=== PATIENT | female | born 1955 | race Caucasian/White ===

== ENCOUNTER 2017-01-25 12:03 | Observation (INO) | payer MEDICARE ==
[~2017-01-25] VITALS: Ht 162.6 cm; Wt 84.8 kg
[~2017-01-25 12:03] MED LIST: ASPIRIN325 MG PO; BAYER CHEWABLE81 MG PO; CATAPRES0.1 MG PO; CELEXA20 MG PO; COUMADIN5 MG PO; COZAAR50 MG PO; GLUCOPHAGE500 MG; GLUCOPHAGE500 MG PO; LANTUS INSULIN10 ML SC; LIPITOR20 MG PO; PLAVIX75 MG PO; PROAIR HFA8.5 GM INH; PROVENTIL HFA6.7 GM INH; TYLENOL W/CODEI1 TAB PO; ZIAC 5-6.25 MG1 TAB PO
[2017-01-25 15:34] LABS: ALBUMIN 3.2 g/dL (3.4-5.0); ALKALINE PHOSPHATASE 80 U/L (46-116); ALT (SGPT) 24 U/L (10-68); BILIRUBIN - TOTAL 0.49 mg/dL (0.2-1.3); CALC OSMOLALITY 282 mosm/kg (275-300); CALCIUM 8.2 mg/dL (8.5-10.1); CHLORIDE - SERUM 99 mmol/L (98-107); CREATININE - SERUM 0.7 mg/dL (0.6-1.3); POTASSIUM - SERUM 3.9 mmol/L (3.5-5.1); PROTEIN - SERUM 6.9 g/dL (6.4-8.2); SODIUM 137 mmol/L (136-145); UREA NITROGEN 19 mg/dL (7-18); eGFR NON AFRICAN AMERICAN 90 mL/min (90-120)
[2017-01-25 15:35] LABS: GLUCOSE 224 mg/dL (74-106)
[2017-01-25 18:18] LABS: CKMB 2.1 U/L (0.0-3.6); CREATINE KINASE 206 UL (21-215); TROPONIN-I < 0.017 ng/mL (0.000-0.060)
--- NOTE | 2017-01-25 19:00 | NUR ---
RECEIVED PATIENT FROM ER VIA WHEELCHAIR TO ROOM 1219 ACCOMPANIED BY ER STAFF WITH ADMITTING Dx OF DEHYDRATION/DIARRHEA. PT STATES ALSO THAT SHE FELL AT HOME. INTRODUCED SELF. V/S TAKEN. ROUTINE ADISSION ASSESSMENT AND HISTORY DONE. ORIENTED TO ROOM AND BED CONTROLS. PLAN OF CARE INITIATED.
[2017-01-25 19:06] VITALS: BP 130/66; BMI 32.1
--- NOTE | 2017-01-25 20:52 | NUR ---
CALL LIGHT ANSWERED. ASSISTED TO THE BATHROOM. LOOSE BOWEL MOVEMENT NOTED. ASSISTED BACK TO BED AFTER.
--- NOTE | 2017-01-25 21:16 | NUR ---
FSBS 291mg/dl @ HS WITH SLIDING SCALE.
--- NOTE | 2017-01-25 21:50 | NUR ---
TELEMETRY STARTED--89/min SR.
--- NOTE | 2017-01-25 22:43 | NUR ---
REGULAR INSULIN 6 units SQ GIVEN PER SLIDING SCALE. SEE E-MAR.
--- NOTE | 2017-01-25 22:57 | NUR ---
PAIN LEVEL 8/10 FROM L SHOULDER WHEN PT FELL AT HOME. DAYLIN #3 2tabs PO GIVEN FOR PAIN MANAGEMENT. PROVIDED WITH DIET LEMON-CHILKAT.
--- NOTE | 2017-01-25 23:20 | NUR ---
INDUSTRIAL ROBOTICS MECHANIC HERE TO DRAW CARDIAC LABS.
--- NOTE | 2017-01-25 23:32 | NUR ---
CALL LIGHT ANSWERED. ASSISTED TO THE BATHROOM. VOIDED. V/S TAKEN WITH ORTHOSTATIC BP'S.
[2017-01-25 23:34] VITALS: BP 126/61
[2017-01-25 23:36] VITALS: BP 119/69
[2017-01-25 23:38] VITALS: BP 114/63
[2017-01-25 23:55] LABS: CKMB 1.7 U/L (0.0-3.6); CREATINE KINASE 201 UL (21-215)
[2017-01-25 23:56] LABS: TROPONIN-I < 0.017 ng/mL (0.000-0.060)
--- NOTE | 2017-01-26 01:20 | NUR ---
EYES CLOSED. LEFT UNDISTURBED.
--- NOTE | 2017-01-26 03:20 | NUR ---
APPEARS TO BE ASLEEP.
--- NOTE | 2017-01-26 04:55 | NUR ---
CUSTOMER ENGINEER HERE TO DRAW AM LAB. MARIO PEREZ.
--- NOTE | 2017-01-26 04:59 | NUR ---
ASSISTED TO THE BATHROOM AND BACK TO BED. VOIDED. NEW IV BAG HUNG.
--- NOTE | 2017-01-26 05:43 | NUR ---
SLEPT FAIRLY WELL DURING THE NIGHT. CONTINUING PLAN OF CARE.
[2017-01-26 05:50] LABS: CALC OSMOLALITY 288 mosm/kg (275-300); CALCIUM 7.9 mg/dL (8.5-10.1); CARBON DIOXIDE 27.3 mmol/L (21.0-32.0); CHLORIDE - SERUM 104 mmol/L (98-107); CKMB 1.6 U/L (0.0-3.6); CREATINE KINASE 169 UL (21-215); CREATININE - SERUM 0.7 mg/dL (0.6-1.3); GLUCOSE 197 mg/dL (74-106); POTASSIUM - SERUM 3.5 mmol/L (3.5-5.1); SODIUM 141 mmol/L (136-145); TROPONIN-I < 0.017 ng/mL (0.000-0.060); UREA NITROGEN 21 mg/dL (7-18); eGFR NON AFRICAN AMERICAN 90 mL/min (90-120)
[2017-01-26 05:51] LABS: BASOPHILS 0.6 % (0.0-2.0); HEMATOCRIT 39.1 % (36.0-48.0); HEMOGLOBIN 12.8 g/dL (12-16); IMMATURE GRANULOCYTES 0.6 % (0-5); LYMPHOCYTES 53.4 % (15-50); MCH 29.8 pg (26.0-34.0); MCHC 32.7 g/dL (31.0-37.0); MCV 90.9 fL (80.0-100.0); MEAN PLATELET VOLUME 11.5 fL (7.4-10.4); MONOCYTES 15.1 % (2-11); NEUTROPHILS 29.3 % (40-80); RDW 13.4 % (11.5-14.5); WBC 4.9 10x3/uL (4.8-10.8)
[2017-01-26 05:54] LABS: PLATELET COUNT 179 10x3/uL (130-400)
--- NOTE | 2017-01-26 06:29 | NUR ---
FSBS 167mg/dl WITH SLIDING SCALE. SLEPT FAIRLY WELL DURING THE NIGHT. CONTINUING PLAN OF CARE.
--- NOTE | 2017-01-26 07:45 | NUR ---
PATIENT SITTING UP ON THE BEDSIDE EATING HER BREAKFAST. NO NEEDS NOTED. CALL LIGHT IS WITHIN REACH.
--- NOTE | 2017-01-26 08:33 | NUR ---
ASSISTED PT UP TO BATHROOM. STATES THAT SHE HAS SOME DIZZINESS AT TIMES AND HAS FALLEN AT HOME. PT VOIDED. PT BACK TO BED.
--- NOTE | 2017-01-26 09:05 | NUR ---
PATIENT GIVEN HER MORNING MEDICATIONS IN ADDITION TO 2 TYLENOL #3 TABS FOR C/O LEFT SHOULDER PAIN. SHE DESCRIBES THE PAIN SHARP IN THE TRAPEZIUS MUSCLE REGION. SHE DID FALL ON IT AND HAS HX OF SHOULDER DISLOCATION X1 FROM A FALL LAST YEAR. SHE DOES NORMALLY USE A CANE FOR STABILITY. SHE LIVES ALONE. HER DAUGHTER IS COMING TO STAY WITH HER FOR A FEW DAYS AND WILL BE HERE LATER TODAY. IVF INFUSING PER ORDERS TO THE RIGHT HAND. INSERTION SITE IS WITHOUT REDNESS OR SWELLING FROM INFILTRATION.
[2017-01-26 09:20] VITALS: BP 128/63
--- NOTE | 2017-01-26 09:56 | NUR ---
PATIENT UP WALKING IN THE HALLWAY WITH PT. SHE IS STRONG ON HER LEGS BUT EXPERIENCES VERTIGO THAT MAKES HER UNSTEADY AT TIMES. WAS ADVISED THAT SHE DOESN'T NEED TO BE WALKING INDEPENDENTLY AT THIS TIME. SHE STATES THAT HER PAIN IS GETTING BETTER AND RATES IT A 4-5. FRESH ICE WATER AT THE BEDSIDE. DENIES OTHER NEEDS AT THIS TIME.
--- NOTE | 2017-01-26 11:07 | NUR ---
MISTY RESTING QUIETLY WITH EYES CLOSED, HOB UO 45 DEGREES, LIGHTS ON, GLASSES ON, NEWSPAPER IN HER LAP. RESPIRATIONS ARE DEEP AND EVEN. CALL LIGHT IS WITHIN HER REACH, DOOR OPEN. MONITORING.
--- NOTE | 2017-01-26 11:52 | HP ---
PATIENT: GERMAN WARREN MEDICAL RECORD: [id number] ACCOUNT: [id number] LOCATION[facility] : 51 ADMISSION DATE: 01/25/17 HISTORY AND PHYSICAL EXAMINATION HISTORY OF PRESENT ILLNESS: Ms. Warren is a 61-year-old white female patient who was previously followed by Dr. Mason, who presents with dizziness, headaches, falls and decreased urine output. She was found to be hypotensive here in the Emergency Room. She has been babysitting her grandchildren who had flu. She denies really any syncope, nausea, vomiting, fever or chills. She has been coughing up some green phlegm for at least a month. She is rather vague with her details, but she is placed in observation at this time for IV fluids and monitoring her blood pressure. PAST MEDICAL HISTORY: Significant for multiple CVAs, diabetes, hypertension, coronary artery disease with previous stenting, myocardial infarction, vertigo, atrial fib and a heart murmur, emphysema, asthma, sleep apnea with BiPAP. PAST SURGICAL HISTORY: Include foot and arm surgeries. ALLERGIES: IODINE AND LISINOPRIL. HOME MEDICATIONS: Include albuterol, clopidogrel 75 mg a day, atorvastatin 40 mg a day, losartan 50 mg a day, Lantus, Tylenol with codeine, clonidine 0.1 q.6 p.r.n., citalopram 10 mg a day, Ziac 1 mg a day, albuterol 1 puff q.4 p.r.n., aspirin a day and metformin 1000 b.i.d. FAMILY HISTORY: Significant for cardiovascular disease and diabetes. SOCIAL HISTORY: The patient does not smoke or drink. DIAGNOSTIC DATA: CT of her head reveals some old infarcts, no acute intracranial pathology. X-ray of the left shoulder reveals some degenerative changes in the left shoulder. Chest x-ray reveals no active disease. LABORATORY DATA: Sodium is 137, BUN 19, creatinine 0.9, glucose 244. PHYSICAL EXAMINATION: GENERAL: Alert and cooperative at this time. HEENT: Negative. NECK: Soft and supple. CARDIOVASCULAR: Heart regular. LUNGS: Clear. ABDOMEN: Soft. NEUROLOGIC: No gross neurologics. IMPRESSION: Recent falls, hypotension, vertigo, recent diarrhea, history of cerebrovascular accident, history of coronary artery disease, atrial fibrillation, obstructive sleep apnea. PLAN: Observation, monitor blood sugars, orthostatic, echo, telemetry, hold BP meds, IV fluids. See orders for rest of the plan. TRANSINT:[id number] Voice Confirmation ID: [id number] DOCUMENT ID: [id number] HISTORY AND PHYSICAL [id number] GERMAN WARREN MATTHEW DO at 1152 CC: [id number] DICTATION DATE: 01/25/17 183 VENDING MACHINE COIN COLLECTOR: 01/25/177 ADM IN [place] [id number] [place] [id number]
--- NOTE | 2017-01-26 11:56 | NUR ---
MEDICAL IMAGING IN DOING THE ECHO. MARIANO DELIVERED. WILL CHECK FSBS PRIOR TO HER EATING, AFTER ECHO.
--- NOTE | 2017-01-26 13:10 | NUR ---
patient sitting up on the bedside looking at her phone. she asked to borrow a phone sprinkler fitter. found one and loaned it to her.
[2017-01-26 13:22] VITALS: Ht 162.6 cm; Wt 84.8 kg
--- NOTE | 2017-01-26 13:23 | NUR ---
ASSISTED PATIENT BACK INTO BED, POSITIONED FOR COMFORT. IVF INFUSING AND FRESH ICE WATER PROVIDED. CALL LIGHT IS WITHIN REACH. MONITORING.
--- NOTE | 2017-01-26 14:16 | NUR ---
No. Question Answer Score * Is the patient Alert and Oriented? Yes 0 * How many steps to enter\exit or inside your home? 7 0 * PCP DOES NOT HAVE ONE. SHE THINKS DR. MONROE IS GOING TO ACCEPT HER NEW PATIENT. 0 * Pharmacy [facility] ON [address] 0 * Preadmission Environment Home with Family 0 * ADLs Independent 0 * Equipment None 0 * List name and contact numbers for known caregivers / representatives who currently or will assist patient after discharge: RAULYUEDEDRICK BASS [phone] * Community resources currently utilized None 0 * Additional services required to return to the preadmission environment? No 0 * Can the patient safely return to the preadmission environment? Yes 0 * Has this patient been hospitalized within the prior 30 days at any hospital? No PATIENT IS AWAKE AND ALERT. SHE STATES SHE LIVES ALONE AND IS INDEPENDENT IN HER ADL'S. PATIENT'S DAUGHTER, RICHARD, WILL BE AVAILABLE TO DRIVE HER HOME AT DISCHARGE. PATIENT STATES SHE DOES NOT HAVE A PCP AT PRESENT BUT SHE STATES THAT DR. MONROE HAS AGREED TO ACCEPT HER A PATIENT. SHE GETS HER MEDS FROM [facility] ON [address] PATIENT DENIES ANY EQUIPMENT AND HAS NEVER HAD HOME HEALTH. THERE ARE 7 STEPS TO ENTER HER HOME AND SHE STATES THEY ARE NOT USUALLY A PROBLEM. HER DAUGHTER IS AT THE BEDSIDE AND STATES SHE MAY BE TAKING PATIENT TO HER HOME IN [place] FOR A FEW DAYS TO RECUPERATE.
[2017-01-26 14:31] LABS: HEMOGLOBIN A1C 11.3 % (4.8-6.0)
--- NOTE | 2017-01-26 14:49 | NUR ---
PHYSICAL THERAPIST IS HERE TO WALK PT. PT TOLERATED WELL.
--- NOTE | 2017-01-26 14:50 | NUR ---
Visited with patient. Discussed discharge information. Pt happy with care. Denies needs at this time.
[2017-01-26] MEDS ORDERED: PROVENTIL HFA6.7 GM INH (15:35)
[2017-01-26] MEDS ORDERED: GLUCOPHAGE500 MG PO (15:35)
[2017-01-26] MEDS ORDERED: LIPITOR20 MG PO (15:35)
[2017-01-26] MEDS ORDERED: CELEXA20 MG PO (15:35)
[2017-01-26] MEDS ORDERED: PLAVIX75 MG PO (15:35)
[2017-01-26] MEDS ORDERED: LANTUS INSULIN10 ML SC (15:35)
--- NOTE | 2017-01-31 08:17 | EC ---
PATIENT:GERMAN WARREN DATE OF SERVICE: 01/25/17 SEX: F MEDICAL RECORD: [id number] DATE OF : [birth year] [facility] AGE [facility]: 61 ADMISSION DATE: 01/25/17 REFERRING PHYSICIAN: INTERPRETING PHYSICIAN: RUFINO STANLEY M.D. ECHOCARDIOGRAM REPORT ECHO CHARGES 4 ECHO COMPLETE CLINICAL DIAGNOSIS: SYNCOPE HX OF CAD/STENT ECHOCARDIOGRAPHIC MEASUREMENTS (adult normal given) AC root (d.<3.7cm) 3.2 LV Septum d (<1.2 cm> 1.4 Valve Excursion 1.7 LV Septum (systole) 1.5 Left Atria (s.<4.0cm> 3.0 LVPW d(<1.2cm) 1.6 RV (d.<2.3cm) 3.8 LVPW (sytole) 1.7 LV diastole(<5.6CM) 5.4 MV E-F(>70mm/sec) LV systole 4.5 LVOT Diameter 1.5 MV exc.(>10mm) 1.3 Est.ejection fraction (50-75%) Pericardial Effusion N DOPPLER: LVIT A 91.0 E 111 LA RVSP 20 LVOT 131 AOP1/2T Asc. Ao 153 RVOT 109 RA PA 133 AV Gradient Peak 9.41 AV Mean 5.52 AV Area 1.5 MV Gradient Peak 5.44 MV Mean 2.22 MV Area COMMENTS: Nutrition Program Instructor: Samantha BRITO Service Department Manager:2 Dr. Stanley TAPE# PACS DATE OF SERVICE: 01/26/2017 REFERRING PHYSICIAN: Sam Clemens DO INDICATION: Syncope. DESCRIPTION: Left ventricle demonstrates left ventricular hypertrophy. No wall motion abnormalities are noted. Estimated ejection fraction is 55%. Mitral valve is structurally normal. There is no regurgitation or prolapse seen. Left atrium is normal in size. The aortic valve is trileaflet. There is no stenosis ECHOCARDIOGRAM REPORT [id number] GERMAN WARREN or regurgitation present. The right ventricle is mildly dilated. Tricuspid valve is normal. There is mild regurgitation noted. Right atrium is normal size. There is no pericardial effusion seen. IMPRESSION: 1. Left ventricular hypertrophy with preserved ejection fraction of 55%. 2. Mild tricuspid regurgitation. TRANSINT:[id number] Voice Confirmation ID: [id number] DOCUMENT ID: [id number] RUFINO STANLEY M.D. at 0817 CC: [id number] DICTATION DATE: 01/27/17 0637 MAKE UP MAN: 01/28/17 0114 DIS IN 01/26/17 [facility] [address] [place] [id number]
== END 2017-01-26 14:30 | disposition home or self-care (01) ==
LOC: D.ER 12:03 → D.WS 17:20 → OBSVTIME 17:20 → D.WS 17:20
PROVIDERS: Physician Assistant; ADMIT Family Medicine
DX: I95.9 Hypotension, unspecified (principal); E86.0 Dehydration; R42 Dizziness and giddiness; R51 Headache; Z91.81 History of falling; Z86.73 Personal history of transient ischemic attack (TIA), and cerebral infarction without residual deficits; E11.65 Type 2 diabetes mellitus with hyperglycemia; I10 Essential (primary) hypertension; I25.10 Atherosclerotic heart disease of native coronary artery without angina pectoris; Z95.5 Presence of coronary angioplasty implant and graft; I48.91 Unspecified atrial fibrillation; I25.2 Old myocardial infarction; G47.30 Sleep apnea, unspecified; M25.512 Pain in left shoulder

== ENCOUNTER → 2017-05-24 16:43 | Outpatient (CLI) | payer MEDICARE ==
[2017-01-26 13:22] VITALS: BMI 32.1
== END | disposition home or self-care (01) ==
LOC: D.MAMMO 15:30
DX: Z12.31 Encounter for screening mammogram for malignant neoplasm of breast (principal)

== ENCOUNTER 2017-05-31 00:38 | Emergency (ER) | payer MEDICARE ==
[2017-01-26 13:22] VITALS: BMI 32.1
== END 2017-05-31 02:58 | disposition home or self-care (01) ==
LOC: D.ER 00:38
DX: E11.9 Type 2 diabetes mellitus without complications (principal); I10 Essential (primary) hypertension; Z79.4 Long term (current) use of insulin

== ENCOUNTER → 2017-06-26 18:36 | Outpatient (CLI) | payer MEDICARE ==
[2017-01-26 13:22] VITALS: BMI 32.1
== END | disposition home or self-care (01) ==
LOC: D.MAMMO 13:30
DX: R92.8 Other abnormal and inconclusive findings on diagnostic imaging of breast (principal)

== ENCOUNTER 2017-09-27 10:55 | Emergency (ER) | payer MEDICARE ==
[2017-01-26 13:22] VITALS: BMI 32.1
[2017-09-27 11:48] LABS: BASOPHILS 0.2 % (0-2); EOSINOPHILS 1.5 % (0-7); HEMATOCRIT 43.2 % (36.0-48.0); HEMOGLOBIN 14.6 g/dL (12-16); IMMATURE GRANULOCYTES 0.4 % (0-5); LYMPHOCYTES 29.8 % (15-50); MCHC 33.8 g/dL (31.0-37.0); MCV 88.9 fL (80.0-100.0); MEAN PLATELET VOLUME 11.4 fL (7.4-10.4); MONOCYTES 7.9 % (2-11); NEUTROPHILS 60.2 % (40-80); RBC 4.86 10x6/uL (4.00-5.40)
[2017-09-27 12:01] LABS: PLATELET COUNT 215 10x3/uL (130-400)
[2017-09-27 12:04] LABS: APTT 24.2 SECONDS (22.8-39.4); INR 0.95 (0.85-1.17); PROTIME 12.5 SECONDS (11.6-15.0)
[2017-09-27 12:07] LABS: ALBUMIN 3.3 g/dL (3.4-5.0); ALKALINE PHOSPHATASE 105 U/L (46-116); ALT (SGPT) 25 U/L (10-68); BILIRUBIN - TOTAL 0.35 mg/dL (0.2-1.3); CALC OSMOLALITY 281 mosm/kg (275-300); CALCIUM 9.2 mg/dL (8.5-10.1); CARBON DIOXIDE 24.6 mmol/L (21.0-32.0); CHLORIDE - SERUM 98 mmol/L (98-107); CREATININE - SERUM 0.8 mg/dL (0.6-1.3); POTASSIUM - SERUM 3.9 mmol/L (3.5-5.1); PROTEIN - SERUM 7.8 g/dL (6.4-8.2); SODIUM 134 mmol/L (136-145); UREA NITROGEN 13 mg/dL (7-18); eGFR NON AFRICAN AMERICAN 76 mL/min (90-120)
[2017-09-27 12:08] LABS: GLUCOSE 348 mg/dL (74-106)
[2017-09-27 12:26] LABS: CREATINE KINASE 91 UL (21-215); TROPONIN-I < 0.017 ng/mL (0.000-0.060)
== END 2017-09-27 13:33 | disposition home or self-care (01) ==
LOC: D.ER 10:55
PROVIDERS: Emergency Medicine
DX: R20.2 Paresthesia of skin (principal)

== ENCOUNTER 2017-09-29 10:14 | Emergency (ER) | payer MEDICARE ==
[2017-01-26 13:22] VITALS: BMI 32.1
[2017-09-29 10:54] LABS: BASOPHILS 0.2 % (0-2); EOSINOPHILS 0.4 % (0-7); HEMATOCRIT 44.4 % (36.0-48.0); HEMOGLOBIN 14.9 g/dL (12-16); IMMATURE GRANULOCYTES 0.5 % (0-5); MCH 30.2 pg (26.0-34.0); MCHC 33.6 g/dL (31.0-37.0); MCV 90.1 fL (80.0-100.0); MEAN PLATELET VOLUME 11.2 fL (7.4-10.4); MONOCYTES 9.6 % (2-11); NEUTROPHILS 61.3 % (40-80); PLATELET COUNT 242 10x3/uL (130-400); RBC 4.93 10x6/uL (4.00-5.40); RDW 13.1 % (11.5-14.5)
[2017-09-29 10:56] LABS: WBC 10.1 10x3/uL (4.8-10.8)
[2017-09-29 11:08] LABS: ALBUMIN 3.3 g/dL (3.4-5.0); ALKALINE PHOSPHATASE 92 U/L (46-116); ALT (SGPT) 25 U/L (10-68); BILIRUBIN - TOTAL 0.51 mg/dL (0.2-1.3); CARBON DIOXIDE 30.2 mmol/L (21.0-32.0); CHLORIDE - SERUM 100 mmol/L (98-107); CREATININE - SERUM 0.8 mg/dL (0.6-1.3); PROTEIN - SERUM 7.4 g/dL (6.4-8.2); SODIUM 139 mmol/L (136-145); eGFR NON AFRICAN AMERICAN 76 mL/min (90-120)
[2017-09-29 11:09] LABS: APTT 22.7 SECONDS (22.8-39.4); CALC OSMOLALITY 288 mosm/kg (275-300); GLUCOSE 258 mg/dL (74-106); INR 0.98 (0.85-1.17); POTASSIUM - SERUM 3.2 mmol/L (3.5-5.1); PROTIME 12.9 SECONDS (11.6-15.0); UREA NITROGEN 17 mg/dL (7-18)
== END 2017-09-29 14:36 | disposition other institution (70) ==
LOC: D.ER 10:14
PROVIDERS: Emergency Medicine
DX: I63.9 Cerebral infarction, unspecified (principal); E11.65 Type 2 diabetes mellitus with hyperglycemia; Z79.4 Long term (current) use of insulin

== ENCOUNTER 2018-10-04 01:37 | Emergency (ER) | payer MEDICARE ==
[~2018-10-04] VITALS: Ht 162.6 cm; Wt 79.8 kg
[2018-10-04 01:38] VITALS: Ht 162.6 cm; Wt 79.8 kg
[2018-10-04 02:41] LABS: BASOPHILS 0.1 % (0-2); EOSINOPHILS 1.1 % (0-7); HEMATOCRIT 34.2 % (36.0-48.0); HEMOGLOBIN 11.4 g/dL (12-16); IMMATURE GRANULOCYTES 0.2 % (0-5); LYMPHOCYTES 18.7 % (15-50); MCHC 33.3 g/dL (31.0-37.0); MCV 92.9 fL (80.0-100.0); MEAN PLATELET VOLUME 10.5 fL (7.4-10.4); MONOCYTES 7.1 % (2-11); NEUTROPHILS 72.8 % (40-80); PLATELET COUNT 202 10x3/uL (130-400); RBC 3.68 10x6/uL (4.00-5.40); RDW 13.1 % (11.5-14.5); WBC 10.1 10x3/uL (4.8-10.8)
[2018-10-04 02:51] LABS: ALBUMIN 3.5 g/dL (3.4-5.0); ANION GAP 12.2 mmol/L (8-16); BILIRUBIN - TOTAL 0.36 mg/dL (0.2-1.3); CALCIUM 8.7 mg/dL (8.5-10.1); CARBON DIOXIDE 29.1 mmol/L (21.0-32.0); CREATININE - SERUM 1.2 mg/dL (0.6-1.3); POTASSIUM - SERUM 4.3 mmol/L (3.5-5.1); PROTEIN - SERUM 6.9 g/dL (6.4-8.2)
[2018-10-04 02:52] LABS: INR 1.03 (0.85-1.17); PROTIME 13.2 SECONDS (11.6-15.0)
[2018-10-04 02:53] LABS: APTT 32.4 SECONDS (22.8-39.4)
[2018-10-04 04:16] VITALS: BP 134/50
== END 2018-10-04 04:17 | disposition home or self-care (01) ==
LOC: D.ER 01:37
PROVIDERS: Family Medicine
DX: S00.03XA Contusion of scalp, initial encounter (principal); W18.00XA Striking against unspecified object with subsequent fall, initial encounter; Y93.89 Activity, other specified; Y92.019 Unspecified place in single-family (private) house as the place of occurrence of the external cause; Z86.73 Personal history of transient ischemic attack (TIA), and cerebral infarction without residual deficits; E11.9 Type 2 diabetes mellitus without complications